=== PATIENT | female | born 1995 | race Caucasian/White ===

== ENCOUNTER 2019-11-17 15:50 | Emergency (ER) | payer SELFPAY ==
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
[2019-11-17] MEDS ORDERED: LIDOCAINE 1% INJ-PF (10 MG/ML) 30 ML SDV INJ ONE (18:45)
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
[2019-11-17 19:59] VITALS: BP 125/72
== END 2019-11-17 19:59 | disposition home or self-care (01) ==
LOC: ER 15:50
DX: S61.210A Laceration without foreign body of right index finger without damage to nail, initial encounter (principal); W26.0XXA Contact with knife, initial encounter
CPT/HCPCS: 99282; 12001; J3490

== ENCOUNTER 2019-12-26 19:35 | Emergency (ER) | payer SELFPAY ==
[2019-12-26] MEDS ORDERED: FENTANYL CITRATE INJ/PF 100 MCG/2 ML AMPUL IV ONE (19:46)
[2019-12-26] MEDS ORDERED: ONDANSETRON HCL INJ/PF 4 MG/2 ML SDV IV ONE (19:46)
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
[2019-12-26] MEDS ORDERED: HYDROMORPHONE HCL INJ/PF 2 MG/ML AMPULE IV ONE (21:48)
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
[2019-12-26] MEDS ORDERED: HYDROCODONE/ACETAMINOPHEN 5-325 MG (6 TAB/ER DISP) PO PRN (22:27)
[2019-12-26 22:31] VITALS: BP 114/73
== END 2019-12-26 23:02 | disposition home or self-care (01) ==
LOC: ER 19:35
DX: T23.221A Burn of second degree of single right finger (nail) except thumb, initial encounter (principal); T20.27XA Burn of second degree of neck, initial encounter; T22.111A Burn of first degree of right forearm, initial encounter; T22.191A Burn of first degree of multiple sites of right shoulder and upper limb, except wrist and hand, initial encounter; T20.00XA Burn of unspecified degree of head, face, and neck, unspecified site, initial encounter; X08.8XXA Exposure to other specified smoke, fire and flames, initial encounter; Y93.G2 Activity, grilling and smoking food; Y92.009 Unspecified place in unspecified non-institutional (private) residence as the place of occurrence of the external cause; Z88.8 Allergy status to other drugs, medicaments and biological substances
CPT/HCPCS: 99283; 96374; 96375; J3010; J1170; J2405

== ENCOUNTER 2020-02-14 14:38 | Emergency (ER) | payer SELFPAY ==
[2020-02-14 14:44] VITALS: BP 129/69
[2020-02-14] MEDS ORDERED: AMOXICILLIN TRIHYDRATE 500 MG CAPSULE PO ONE (14:55)
[2020-02-14] MEDS ORDERED: OXYCODONE-ACETAMINOPHEN 5-325 MG TABLET PO ONE (14:55)
--- NOTE | 2020-02-14 14:57 | ER Document Report ---
HPI - HPI Time Seen by Provider: 02/14/20 14:51 Notes: 24-year-old female patient presenting to the emergency department chief complaint of dental pain. Patient has pain at tooth #20. She states pain has been intermittent for quite some time but has worsened significantly since last night. She reports facial swelling and a throbbing sensation in her face and left ear. She denies any fevers or drainage from the area. - REPRODUCTIVE Reproductive: DENIES: : Past Medical History - General Information source: Patient - Social History Smoking Status: Never Smoker Frequency of alcohol use: None Family History: Reviewed & Not Pertinent Psychiatric Medical History: Reports: Hx Bipolar Disorder, Hx Depression Vertical Provider Document - CONSTITUTIONAL Notes: PHYSICAL EXAMINATION: GENERAL: Well-appearing, well-nourished and in no acute distress. HEAD: Atraumatic, normocephalic. EYES: Pupils equal round extraocular movements intact, conjunctiva are normal. ENT: Nares patent, erythema surrounding tooth #20, no rox abscess, no trismus. NECK: Normal range of motion LUNGS: No respiratory distress Musculoskeletal: Normal range of motion NEUROLOGICAL: Normal speech, normal gait. PSYCH: Normal mood, normal affect. SKIN: Warm, Dry, normal turgor, no rashes or lesions noted. - INFECTION CONTROL TRAVEL OUTSIDE OF THE [place] IN LAST 30 DAYS: No Course - Re-evaluation Re-evalutation: 02/14/20 14:55 Presentation is most consistent with likely an infected tooth. Airway is p atent. Vitals within normal limits. Patient is able swallow without any difficulty. There is no significant facial swelling. No evidence of Efraín angina, apical abscess, or airway obstruction. Patient will be started on antibiotics. I've instructed to follow-up with dentistry as earliest ability for definitive management. At this time will discharge with return precautions and follow-up recommendations. Verbal discharge instructions given a the bedside and opportunity for questions given. Medication warnings reviewed. Patient is in agreement with this plan and has verbalized understanding of return precautions and the need for primary care follow-up in the next 24-72 hours. - Vital Signs Vital signs: Temp Pulse Resp BP Pulse Ox 97.4 F 90 20 129/69 H 100 02/14/20 14:43 02/14/20 14:43 02/14/20 14:43 02/14/20 14:43 02/14/20 14:43 Discharge - Discharge Clinical Impression: Dental infection Otitis media Qualifiers: Otitis media type: unspecified Chronicity: acute Qualified Code(s): H66.90 - Otitis media, unspecified, unspecified ear Condition: Stable Disposition: HOME, SELF-CARE Additional Instructions: You have been seen for dental pain and ear pain. Take the antibiotics as prescribed. It is very important that you follow-up with a dentist for definitive care. The [facility] dental clinic is located here in [place], therefore number is [phone]. Please return if you develop fever greater than 101, swelling in your face, vomiting, difficulty breathing or swallowing, or any other symptoms that are concerning to you. For pain you should take ibuprofen 800 mg every 8 hours as needed. Prescriptions: Amoxicillin 1 tab PO TID #30 tab Ibuprofen [Motrin 800 mg Tablet] 800 mg PO Q8H PRN #30 tab PRN Reason: Forms: Return to Work
== END 2020-02-14 15:05 | disposition home or self-care (01) ==
LOC: ER 14:38
DX: K04.7 Periapical abscess without sinus (principal); H66.90 Otitis media, unspecified, unspecified ear; K08.89 Other specified disorders of teeth and supporting structures
CPT/HCPCS: 99282